=== PATIENT | female | born 1945 | race Caucasian/White ===

== ENCOUNTER 2021-11-13 09:09 | Inpatient (IN) | payer OTHER ==
[~2021-11-13] VITALS: Ht 167.6 cm; Wt 83.9 kg
[2021-11-13] MEDS ORDERED: LOSARTAN POTAS100 MG PO (09:23)
[2021-11-13] MEDS ORDERED: ZIAC 2.5-6.251 EACH PO (09:24)
[2021-11-13] MEDS ORDERED: PROTONIX40 MG PO (09:24)
[2021-11-13] MEDS ORDERED: ATARAX25 MG PO (09:25)
[2021-11-14] MEDS ORDERED: ELIQUIS5 MG (08:09)
[2021-11-14] MEDS ORDERED: COLESTIPOL HCL1 GM (08:09)
[2021-11-19] MEDS ORDERED: PROTONIX40 MG PO (15:57)
[2021-11-19] MEDS ORDERED: METOPROLOL TART50 MG PO (15:58)
[2021-11-19] MEDS ORDERED: ZETIA10 MG PO (15:59)
[2021-11-19] MEDS ORDERED: COLESTIPOL HCL1 GM PO (15:59)
[2021-11-19] MEDS ORDERED: OMEGA-31000 MG PO (16:01)
[2021-11-19] MEDS ORDERED: INTESTINEX680 M1 PO (16:06)
[2021-11-19] MEDS ORDERED: FUSION PLUS CA1 EACH PO (16:25)
== END 2021-11-19 22:29 | disposition home or self-care (01) | DRG 811 ==
LOC: ER 09:09 → SURH 13:41
PROVIDERS: ADMIT Internal Medicine; ATTEND Internal Medicine
PROC: BW21YZZ Computerized Tomography (CT Scan) of Abdomen and Pelvis using Other Contrast (ICD-10-PCS; 2021-11-13)
PROC: B24BZZZ Ultrasonography of Heart with Aorta (ICD-10-PCS; 2021-11-13)
PROC: 30233N1 Transfusion of Nonautologous Red Blood Cells into Peripheral Vein, Percutaneous Approach (ICD-10-PCS; 2021-11-13)
PROC: 4A12X4Z Monitoring of Cardiac Electrical Activity, External Approach (ICD-10-PCS; 2021-11-14)
PROC: 02HV33Z Insertion of Infusion Device into Superior Vena Cava, Percutaneous Approach (ICD-10-PCS; 2021-11-17)
PROC: 0DJ08ZZ Inspection of Upper Intestinal Tract, Via Natural or Artificial Opening Endoscopic (ICD-10-PCS; principal; 2021-11-18)
DX: D64.9 Anemia, unspecified (principal); K25.4 Chronic or unspecified gastric ulcer with hemorrhage; I48.91 Unspecified atrial fibrillation; I10 Essential (primary) hypertension; E66.8 Other obesity; Z98.84 Bariatric surgery status; Z20.822 Contact with and (suspected) exposure to COVID-19